=== PATIENT | male | born 1980 | race Caucasian/White ===

== ENCOUNTER 2017-05-01 13:44 | Emergency (ER) | payer OTHER ==
[~2017-05-01] VITALS: Ht 182.9 cm; Wt 81.6 kg
--- NOTE | 2017-05-01 15:18 | PHYS DOC ---
Past History Past Medical History: Diabetes Past Surgical History: No Surgical History Alcohol Use: None Drug Use: None Adult General Chief Complaint Chief Complaint: NEURO SYMPTOMS/DEFICITS HPI HPI Patient is a 37 year old M who presents with L arm numbness/tingling that started about 6hrs prior to arrival. He feels that his symptoms have been gradually improving since the onset. He was diagnosed with type 1 diabetes several months ago and has had intermittent numbness and tingling over the past several months. He states that it typically does not last this long which is why he came into the emergency room. He has no exacerbating or alleviating factors. He has no other associated symptoms He was started on Flexeril approximately 1 week ago Review of Systems Review of Systems Constitutional: Denies fever or chills [] Eyes: Denies change in visual acuity, redness, or eye pain [] HENT: Denies nasal congestion or sore throat [] Respiratory: Denies cough or shortness of breath [] Cardiovascular: No additional information not addressed in HPI [] GI: Denies abdominal pain, nausea, vomiting, bloody stools or diarrhea [] : Denies dysuria or hematuria [] Musculoskeletal: Denies back pain or joint pain [] Integument: Denies rash or skin lesions [] Neurologic: Denies headache, or focal weakness Endocrine: Denies polyuria or polydipsia [] Family History Family History Noncontributory Current Medications Current Medications Medications were reviewed Allergies Allergies Allergies Coded Allergies Type Severity Reaction Last Updated Verified cephalexin Allergy Unknown 05/01/17 Yes doxycycline Allergy Unknown 05/01/17 Yes Physical Exam Physical Exam Constitutional: Well developed, well nourished, no acute distress, non-toxic appearance. [] HENT: Normocephalic, atraumatic, bilateral external ears normal, oropharynx moist, no oral exudates, nose normal. [] Eyes: PERRLA, EOMI, conjunctiva normal, no discharge. [] Neck: Normal range of motion, no tenderness, supple, no stridor. [] Cardiovascular:Heart rate regular rhythm, no murmur [] Lungs & Thorax: Bilateral breath sounds clear to auscultation [] Abdomen: Bowel sounds normal, soft, no tenderness, no masses, no pulsatile masses. [] Skin: Warm, dry, no erythema, no rash. [] Back: No tenderness, no CVA tenderness. [] Extremities: No tenderness, no cyanosis, no clubbing, ROM intact, no edema. [] Neurologic: Alert and oriented X 3, normal motor function, decreased sensation over the first and second finger on the left hand. [] Psychologic: Affect normal, judgement normal, mood normal. [] Current Patient Data Vital Signs Vital Signs Date Time Temp Pulse Resp B/P (MAP) Pulse Ox O2 Delivery O2 Flow Rate FiO2 05/01/17 14:09 98.0 73 18 98 Room Air EKG EKG [] Radiology/Procedures Radiology/Procedures [] Course & Med Decision Making Course & Med Decision Making Pertinent Labs and Imaging studies reviewed. (See chart for details) A differential diagnosis was discussed with Sahil including stroke. There is clearly explained that if his symptoms represented a stroke an MRI would be appropriate test to find this diagnosis. It was explained that this test does not have serious risk factors. It was explained that if he was found to have a stroke he would be more likely to have a second stroke without intervention. Admission was declined. Sahil clearly was able to verbalize risk of and/ or permanent disability with discharge home. He understood that being admitted to the hospital would greatly increase his chances for survival if he was to have a stroke. Greater than 30 minutes was spent providing education on the signs and symptoms of stroke as well as the importance of early treatment. Again after much discussion Sahil declined admission Dragon Disclaimer Dragon Disclaimer This chart was dictated in whole or in part using Voice Recognition software in a busy, high-work load, and often noisy Emergency Department environment. It may contain unintended and wholly unrecognized errors or omissions. Departure Departure: Impression: Primary Impression: Numbness and tingling Disposition: 01 HOME, SELF-CARE Condition: STABLE Referrals: NICK ORNELAS MD (PCP) Patient Instructions: Diabetic Neuropathy, Stroke Prevention Additional Instructions: Sahil was seen in the emergency department for numbness. No emergency medical condition was found on history or physical exam. His symptoms were most consistent with diabetic related nerve pain however education was provided on stroke signs, symptoms, and treatment. He was advised to return to the emergency room as soon as possible if he develops any new or worsening symptoms. He was explained that stroke must be treated within the first 3 hours. He was also advised to follow-up with his primary care doctor as soon as possible for further management. LASHELL JOHN MD May 01, 2017 15:18
[2017-05-01 15:34] VITALS: BP 132/64
== END 2017-05-01 15:36 | disposition home or self-care (01) ==
LOC: ER 13:44
DX: R20.0 Anesthesia of skin (principal); R20.2 Paresthesia of skin; E10.8 Type 1 diabetes mellitus with unspecified complications; Z88.1 Allergy status to other antibiotic agents
CPT/HCPCS: 99281